=== PATIENT | male | born 1965 | race Native Hawaiian/Other Pacific Islander ===

== ENCOUNTER 2018-05-14 05:56 | Emergency (ER) | payer SELFPAY ==
[2018-05-14 07:17] LABS: Basophils % (Auto) 0.4 % (0.0-1.8); Eosinophils # (Auto) 0.2 K/mm3 (0.0-0.4); Eosinophils % (Auto) 3.4 % (0.0-4.3); Hematocrit 47.5 % (35.5-45.6); Hemoglobin 16.4 gm/dl (11.8-15.2); Lymphocytes # (Auto) 1.6 K/mm3 (1.2-5.4); Lymphocytes % (Auto) 28.7 % (13.4-35.0); Mean Corpuscular HGB Conc 35 % (32-34); Mean Corpuscular Hemoglobin 32 pg (28-32); Mean Corpuscular Volume 91 fl (84-94); Monocytes # (Auto) 0.6 K/mm3 (0.0-0.8); Monocytes % (Auto) 10.3 % (0.0-7.3); Platelet Count 118 K/mm3 (140-440); Red Blood Count 5.23 M/mm3 (3.65-5.03); Red Cell Distribution Width 13.5 % (13.2-15.2)
[2018-05-14 07:41] LABS: BUN/Creatinine Ratio 18; Blood Urea Nitrogen 16 mg/dL (9-20); Calcium 9.2 mg/dL (8.4-10.2); Hemolysis Index 17
--- NOTE | 2018-05-14 10:26 | Emergency Department Report ---
ED Dizziness HPI - General Chief Complaint: Dizziness Stated Complaint: DIZZY Time Seen by Provider: 05/14/18 10:04 Source: patient, family Mode of arrival: Ambulatory Limitations: No Limitations - History of Present Illness MD Complaint: dizziness, near syncope -: Sudden, days(s) (1) Time: 04:00 Timing: sudden onset Description: "room spinning" History of Same: No History of Trauma: No Severity: mild Improves With: nothing Worsens With: nothing Associated Symptoms: diaphoresis, malaise (WHEN BP IS LOW), other (HYPERTENSION AND WEAKNESS). denies: ataxia, chest pain, confusion, cough, fever/chills, loss of appetite, rash, seizure, shortness of breath, syncope, weakness - Related Data Home Medications Medication Instructions Recorded Confirmed Last Taken Amlodipine Besylate [Norvasc] 5 mg PO 05/14/18 Unknown Atenolol 05/14/18 Unknown Allergies Allergy/AdvReac Type Severity Reaction Status Date / Time No Known Allergies Allergy Unverified 05/14/18 06:15 ED Review of Systems ROS: Stated complaint: NAUSEA, VOMITING HIGH BLOOD PRESSURE Other details as noted in HPI Comment: All other systems reviewed and negative Constitutional: diaphoresis, weakness. denies: chills, fever Eyes: as per HPI. denies: eye pain, eye discharge, vision change ENT: as per HPI. denies: dental pain, hearing loss Respiratory: no symptoms reported. denies: cough, orthopnea, shortness of breath, SOB with exertion, SOB at rest Cardiovascular: as per HPI, other (HTN). denies: chest pain, palpitations, dyspnea on exertion, orthopnea, edema, syncope, paroxysmal nocturnal dyspnea Endocrine: denies: excessive sweating, flushing, intolerance to cold, intolerance to heat Gastrointestinal: as per HPI. denies: abdominal pain, nausea, vomiting, diarrhea, constipation, hematemesis, melena Genitourinary: as per HPI. denies: urgency, dysuria Musculoskeletal: as per HPI, other (WEAKNESS). denies: back pain, joint swelling, arthralgia Skin: as per HPI. denies: rash, lesions Neurological: as per HPI, weakness. denies: headache, numbness, paresthesias, confusion, vertigo Psychiatric: as per HPI. denies: anxiety, depression, auditory hallucinations, visual hallucinations, homicidal thoughts Hematological/Lymphatic: as per HPI. denies: easy bleeding, easy bruising, swollen glands ED Past Medical Hx - Past Medical History Previous Medical History?: Yes Hx Hypertension: Yes Additional medical history: High cholesterol - Surgical History Past Surgical History?: Yes Additional Surgical History: Hemmorhoids - Family History Family history: diabetes (POS), other (DAD DEC OF ANEURYSM IN CHEST) - Social History Smoking Status: Former Smoker Substance Use Type: None - Medications Home Medications: Home Medications Medication Instructions Recorded Confirmed Last Taken Type Amlodipine Besylate [Norvasc] 5 mg PO 05/14/18 Unknown History Atenolol 05/14/18 Unknown History ED Physical Exam - General Limitations: No Limitations General appearance: alert, anxious - Head Head exam: Absent: atraumatic, normocephalic - Eye Eye exam: Present: PERRL, EOMI - ENT ENT exam: Present: mucous membranes moist - Neck Neck exam: Absent: tenderness, meningismus - Respiratory Respiratory exam: Present: normal lung sounds bilaterally. Absent: respiratory distress, wheezes, rales, rhonchi, stridor - Cardiovascular Cardiovascular Exam: Present: bradycardia (TO 50) - GI/Abdominal GI/Abdominal exam: Present: soft - Rectal Rectal exam: Present: deferred - Back Exam Back exam: Present: normal inspection - Neurological Exam Neurological exam: Present: alert, oriented X3, CN II-XII intact, normal gait - Psychiatric Psychiatric exam: Present: normal affect, normal mood - Skin Skin exam: Present: warm, dry, intact, normal color, diaphoretic. Absent: rash , cyanosis, erythema, urticaria, petechiae, pallor, abrasion, ecchymosis ED Course Vital Signs 05/14/18 05/14/18 06:01 11:24 Temperature 97.5 F L Pulse Rate 52 L Pulse Rate [ 52 L Lying] Pulse Rate [ 55 L Sitting] Pulse Rate [ 50 L Standing] Respiratory 16 Rate Blood Pressure 164/85 Blood Pressure 161/74 [Lying] Blood Pressure 159/95 [Sitting] Blood Pressure 172/96 [Standing] O2 Sat by Pulse 98 Oximetry - Reevaluation(s) Reevaluation #1: 05/14/18 12:28 pt to er today p getting up to urinate during the night and having 2 dizzy spells which he describes as the room spinning and sensation of passing out. he has not had these before. he denies cp or sob. he does report diaphoresis with the episodes. pmh htn on norvasc and atenolol he states sometimes his bp is too low and he is weak he denies any cardiac work up pos fam hx of dm and father of AAA pt is a prior smoker, overweight and with htn and hpld [address] hr [address] elevation or depression trop neg -- same for repeat 12 lead and trop discussed with Dr Woodard- will admit pt to ro ACS atypical presentation and near syncope. labs noted bs [address] head neg Dr Araujo consulted to see and eval pt for admit. ED Medical Decision Making - Lab Data Result diagrams: 05/14/18 06:33 05/14/18 06:33 - EKG Data -: EKG Interpreted by Me EKG shows normal: sinus rhythm Rate: bradycardia - EKG Data Interpretation: no acute changes, other (ELIANE) - Radiology Data Radiology results: report reviewed, image reviewed - Medical Decision Making WEAKNESS NEAR SYNCOPE BRADYCARDIA RO ACS AND CARDIAC ISCHEMIA RO CVA- TIA - Differential Diagnosis PRESYNCOPE ? ETIO Critical care attestation.: If time is entered above; I have spent that time in minutes in the direct care of this critically ill patient, excluding procedure time. ED Disposition Clinical Impression: Dizzy, Near syncope, Hypertension, Symptomatic bradycardia, Weakness Disposition: OP ADMIT IP TO THIS HOSP Is pt being admited?: Yes Does the pt Need Aspirin: Yes Condition: Stable Time of Disposition: 11:48
--- NOTE | 2018-05-14 11:16 | XRay Report ---
FINAL REPORT EXAM: XR CHEST ROUTINE 2V HISTORY: Lightheadedness/Dizziness TECHNIQUE: Chest, PA and lateral PRIORS: None. FINDINGS: The heart size is normal. Mediastinal contours are normal. Pulmonary vasculature is not congested. The lungs are clear. There are no pleural effusion seen. There is no evidence of pneumothorax. IMPRESSION: There is no acute abnormality identified.
--- NOTE | 2018-05-14 11:43 | Cat Scan Report ---
FINAL REPORT EXAM: CT HEAD/BRAIN WO CON HISTORY: DIZZY TECHNIQUE: CT of the head was performed. No intravenous contrast was administered. PRIORS: None. FINDINGS: There is no evidence of intracranial hemorrhage. There is no edema, mass effect or midline shift. There are no abnormal extra-axial fluid collections. The ventricles are appropriate for brain volume. There is no skull fracture seen. There is mucosal thickening and partial opacification of visualized sinuses. IMPRESSION: Sinus mucosal thickening with partial opacification. There is no acute intracranial abnormality identified.
[2018-05-14] MEDS ORDERED: BABY ASPIRIN PO ONE (11:48)
--- NOTE | 2018-05-14 13:35 | Consultation ---
History of Present Illness - Reason for Consult Consult date: 05/14/18 Requesting physician: EVERTON HAGEN - History of Present Illness 53 YO Male with Obesity, HLD, presents to ED for evaluation of Dizziness and near syncope. Pt underwent serial cardiac enzymes, ekg with no evidence of ischemia. CT brain was negative for acute findings. Pt found to have bradycardia suspected secondary to beta jazz therapy. Pt seen and evaluated in ED, and found to be asymptomatic at time of exam. Pt beta jazz discontinued. thyroid workup negative. Pt medically optimized and back to usual state of health. Pt discharged home and instructed to f/u pcp within 1 week with blood pressure log. Past History Past Medical History: hypertension, hyperlipidemia Past Surgical History: Other (hemorrhoidectomy) Social history: , lives with family Family history: diabetes, hypertension Medications and Allergies Allergies Allergy/AdvReac Type Severity Reaction Status Date / Time No Known Allergies Allergy Unverified 05/14/18 06:15 Home Medications Medication Instructions Recorded Confirmed Last Taken Type Amlodipine Besylate [Norvasc] 5 mg PO 05/14/18 Unknown History Atenolol 05/14/18 Unknown History Active Meds: Active Medications Amlodipine Besylate (Norvasc) 10 mg PO ONCE ONE Stop: 05/14/18 13:34 Review of Systems Constitutional: other (dizziness), no weight loss, no weight gain, no fever, no chills, no sweats, no night sweats, no anorexia, no fatigue Ears, nose, mouth and throat: no ear pain, no ear discharge, no tinnitis, no decreased hearing, no nose pain, no nasal congestion Cardiovascular: no chest pain, no orthopnea, no palpitations, no rapid/ irregular heart beat, no edema, no syncope, no lightheadedness Respiratory: no cough, no cough with sputum, no excessive sputum, no hemoptysis , no shortness of breath Gastrointestinal: no abdominal pain, no nausea, no vomiting, no diarrhea, no constipation, no change in bowel habits Genitourinary Male: no hematuria, no flank pain, no discharge, no urinary frequency, no urinary hesitancy Rectal: no pain, no incontinence, no bleeding Musculoskeletal: no neck stiffness, no neck pain, no shooting arm pain, no arm numbness/tingling, no low back pain, no shooting leg pain Integumentary: no rash, no pruritis, no redness, no sores, no wounds Neurological: no head injury, no transient paralysis, no paralysis, no weakness , no parathesias, no numbness, no tingling, no seizures Psychiatric: no anxiety, no memory loss, no change in sleep habits, no sleep disturbances, no insomnia, no hypersomnia, no change in appetite, no change in libido, no suicidal ideation Endocrine: no cold intolerance, no heat intolerance, no polyphagia, no excessive thirst, no polydipsia, no polyuria, no nocturia, no flushing Hematologic/Lymphatic: no easy bruising, no easy bleeding, no lymphadenopathy, no lymphedema Allergic/Immunologic: no urticaria, no persistent infections, no anaphylaxis, no angioedema Exam - Constitutional Vitals: Temp Pulse Resp BP Pulse Ox 97.5 F L 52 L 16 161/74 98 05/14/18 06:01 05/14/18 11:24 05/14/18 06:01 05/14/18 11:24 05/14/18 06:01 General appearance: Present: obese - EENT Eyes: Present: PERRL ENT: hearing intact, clear oral mucosa - Neck Neck: Present: supple, normal ROM - Respiratory Respiratory effort: normal Respiratory: bilateral: CTA - Cardiovascular Heart Sounds: Present: S1 & S2. Absent: rub, click - Extremities Extremities: pulses symmetrical, No edema Peripheral Pulses: within normal limits - Abdominal General gastrointestinal: Present: soft, non-tender, non-distended, normal bowel sounds Male genitourinary: Present: normal - Integumentary Integumentary: Present: clear, warm, dry - Musculoskeletal Musculoskeletal: gait normal, strength equal bilaterally - Psychiatric Psychiatric: appropriate mood/affect, intact judgment & insight - Neurologic Neurologic: CNII-XII intact, moves all extremities Results - Labs CBC & Chem 7: 05/14/18 06:33 05/14/18 06:33 Labs: Abnormal lab results 05/14/18 05/14/18 Range/Units 06:33 06:33 RBC 5.23 H (3.65-5.03) M/mm3 Hgb 16.4 H (11.8-15.2) gm/dl Hct 47.5 H (35.5-45.6) % MCHC 35 H (32-34) % Plt Count 118 L (140-440) K/mm3 [place] % (Auto) 10.3 H (0.0-7.3) % Glucose 129 H (75-100) mg/dL Assessment and Plan - Patient Problems (1) Hypertension Current Visit: Yes Status: Acute Qualifiers: Hypertension type: essential hypertension Qualified Code(s): I10 - Essential (primary) hypertension Plan to address problem: Increase Amlodipine to 10mg PO daily, maintain blood pressure log 2-3 times daily, discontinue metoprolol, (2) Symptomatic bradycardia Current Visit: Yes Status: Acute Plan to address problem: hold beta jazz therapy, outpatient cardiology F/U for further evaluation ( echo/stress test)
[2018-05-14] MEDS: NORVASC PO ONE ×2 (13:41→13:47)
[2018-05-14 15:16] VITALS: BP 151/86
== END 2018-05-14 15:10 | disposition admitted as inpatient to this hospital (09) ==
LOC: ED 05:56
DX: R42 Dizziness and giddiness (principal); R55 Syncope and collapse; R53.1 Weakness; I10 Essential (primary) hypertension; R00.1 Bradycardia, unspecified; E78.00 Pure hypercholesterolemia, unspecified; Z87.891 Personal history of nicotine dependence
CPT/HCPCS: 36415; 70450; 71046; 80048; 84443; 84484; 85025; 85379; 93005; 93010; 99284